=== PATIENT | female | born 1945 | race Asian ===

== ENCOUNTER 2017-09-22 14:12 | Emergency (ER) | payer OTHER, MEDICAID ==
--- NOTE | 2017-09-22 14:35 | CPEKG ---
Heart Rate: 57 RR Interval: 1053 P-R Interval: 180 QRSD Interval: 86 QT Interval: 444 QTC Interval: 433 P Foster: 14 QRS Foster: 72 T Wave Foster: 89 EKG Severity - NORMAL ECG - EKG Impression: SINUS RHYTHM Electronically Signed By: Paddy Lei 22-Sep-2017 15:41:49
--- NOTE | 2017-09-22 14:41 | EDPHY ---
H & P Smoking Status: Never smoked Time Seen by Provider: 09/22/17 14:40 HPI/ROS: Chief complaint. Syncope HPI. 72-year-old female presents emergency department after having a syncopal episode this morning. She got up to go to the bathroom about 5:00 a.m. And passed out without having any symptoms. She awakened 1 hr later on the bathroom floor and then was able to get up. She had no chest discomfort, shortness of breath, abdominal pain. No injuries. She had preceding right jaw pain that started yesterday. However again no chest discomfort. No injury to her jaw. It seems to be worse with chewing. No headache or vision change. She does feel shaky. She has never had passing out or similar episode before. ROS Constitutional. no fever/chills, no weakness Eyes. no problems with vision ENT. Right jaw pain Cardiovascular. no chest pain Respiratory. no shortness of breath, no cough Abdominal. no abdominal pain, no nausea/vomiting, no diarrhea . no problems urinating MS. no calf pain/swelling, no neck/back pain, no joint pain Skin. no rash Lymph. no swollen glands Neuro. Syncope (Paddy Lei) Past Medical/Surgical History: CVA, dyslipidemia, hypertension (Paddy Lei) Social History: , nonsmoker, no alcohol (Paddy Lei) Physical Exam: General Appearance: Alert well-developed female mild distress vital signs are stable Eyes: Pupils equal and round no pallor or injection. ENT, Mouth: Mucous membranes are moist. Respiratory: There are no retractions, lungs are clear to auscultation. Cardiovascular: Regular rate and rhythm. Gastrointestinal: Abdomen is soft and nontender, no masses, bowel sounds normal. Neurological: Awake and alert, sensory and motor exams grossly normal. Skin: Warm and dry, no rashes. Musculoskeletal: Neck is supple nontender. Extremities symmetrical, full range of motion. Psychiatric: Patient is oriented X 3, there is no agitation. (Paddy Lei) Constitutional: Initial Vital Signs Temperature (C) 36.7 C 09/22/17 14:26 Heart Rate 61 09/22/17 14:26 Respiratory Rate 16 09/22/17 14:26 Blood Pressure 118/75 09/22/17 14:26 O2 Sat (%) 90 L 09/22/17 14:26 O2 Delivery Mode Room Air Allergies/Adverse Reactions: No Known Allergies Allergy (Unverified 09/22/17 14:29) Home Medications: Medication Instructions Recorded Atorvastatin Calcium 09/22/17 Medical Decision Making - Diagnostics EKG Interpretation: EKG interpreted by me shows normal sinus rhythm with normal interval and axis. QRS is normal there is no significant ST elevation or depression. There is no arrhythmia. The rate is 57 (Paddy Lei) Imaging Results: Imaging Impressions Chest X-Ray 09/22/17 15:07 Impression: Difficult to exclude left lower lobe pneumonia or atelectasis. Consider a routine PA and lateral chest when the patient is clinically able. Head CT 09/22/17 15:07 Impression: 1. Old right cerebellar, right thalamic, and right basal ganglia infarcts. 2. No acute hemorrhage, hydrocephalus, or mass effect. 3. Cerebrovascular atherosclerosis. 4. No definite acute infarct. 5. Mild cerebral atrophy and mild microvascular ischemic gliosis. 6. Consider MRI of the brain, if there is continued clinical concern. Findings and recommendations discussed with Emergency Department physician, Dr. Thomas Mondragon, at 1605 hours, on September 22, 2017. Final report concurs with initial preliminary interpretation. Chest/Thorax CTA 09/22/17 15:38 Impression: 1. No definite pulmonary thromboemboli. 2. Coronary artery calcifications. 3. Moderate atherosclerotic aorta, without aneurysm or dissection. 4. No acute pneumonia, pleural effusion, pneumothorax, or significant adenopathy. Findings and recommendations discussed with at hours. A test result has been communicated to a licensed care provider and documented in the [employer] Critical Result system on 09/22/2017 16:23, Message ID [id number]. E:GI/amm Procedures: IV normal saline, monitor Patient speaks only Qatari. We used Qatari student services rep via telephone ( Paddy Lei) ED Course/Re-evaluation: Patient has an elevated D-dimer at 1.75. Indication for CT angiogram are syncope and elevated D-dimer (Paddy Lei) Differential Diagnosis: I have considered pneumonia and pulmonary embolus. Patient had a syncopal episode and elevated D-dimer. She has had a CVA in the past I considered intracranial bleeding as well as CVA though she has a normal neurologic exam at this point. I have considered cardiac arrhythmia and electrolyte abnormalities as well (Paddy Lei) Other Provider: 1600 care assumed by me from Dr. Lei pending CT scan of the head and chest. ECG is normal. Troponin is negative. Does have elevated D-dimer but a normal CT scan. Patient through her daughter interpreting tells me that the patient had a syncopal episode this morning after she stood up rapidly from urinating. She has been symptom free all day. Although this is concerning for syncope given her age the patient does not want to stay in the hospital. I have warned her that this could represent a possible arrhythmia that we would not have been able to identify here. Other possible causes could be aortic stenosis however I do not appreciate a traumatic murmur at this time. I do recommend she have this investigated further however she is states she does not want to stay in the hospital. No evidence of acute ischemia or any other bleeding. Patient will be therefore discharged with close follow up with primary care physician instructions return for any concerns. (Thomas Mondragon) Care Turn Over: Dr. Mondragon at 1600 (Paddy Lei) - Data Points Laboratory Results: Laboratory Results 09/22/17 14:37 09/22/17 14:37 09/22/17 09/22/17 09/22/17 14:37 14:37 14:37 WBC 10.12 10^3/uL H 10^3/uL (3.80-9.50) RBC 5.04 10^6/uL 10^6/uL (4.18-5.33) Hgb 16.0 g/dL g/dL (12.6-16.3) Hct 46.7 % % (38.0-47.0) MCV 92.7 fL fL (81.5-99.8) MCH 31.7 pg pg (27.9-34.1) MCHC 34.3 g/dL g/dL (32.4-36.7) RDW 13.3 % % (11.5-15.2) Plt Count 198 10^3/uL 10^3/uL (150-400) MPV 10.9 fL fL (8.7-11.7) Neut % (Auto) 75.9 % H % (39.3-74.2) Lymph % (Auto) 15.7 % % (15.0-45.0) Collier % (Auto) 6.9 % % (4.5-13.0) Eos % (Auto) 0.8 % % (0.6-7.6) Baso % (Auto) 0.3 % % (0.3-1.7) Nucleat RBC Rel Count 0.0 % % (0.0-0.2) Absolute Neuts (auto) 7.68 10^3/uL H 10^3/uL (1.70-6.50) Absolute Lymphs (auto) 1.59 10^3/uL 10^3/uL (1.00-3.00) Absolute Monos (auto) 0.70 10^3/uL 10^3/uL (0.30-0.80) Absolute Eos (auto) 0.08 10^3/uL 10^3/uL (0.03-0.40) Absolute Basos (auto) 0.03 10^3/uL 10^3/uL (0.02-0.10) Absolute Nucleated RBC 0.00 10^3/uL 10^3/uL (0-0.01) Immature Gran % 0.4 % % (0.0-1.1) Immature Gran # 0.04 10^3/uL 10^3/uL (0.00-0.10) ESR 11 MM/HR MM/HR (0-30) PT 13.8 SEC SEC (12.0-15.0) INR 1.07 (0.83-1.16) APTT 25.8 SEC SEC (23.0-38.0) D-Dimer 1.75 ug/mLFEU H ug/mLFEU (0.00-0.50) Sodium 143 mEq/L mEq/L (135-145) Potassium 4.6 mEq/L mEq/L (3.5-5.2) Chloride 102 mEq/L mEq/L (97-110) Carbon Dioxide 24 mEq/l mEq/l (22-31) Anion Gap 17 mEq/L H mEq/L (8-16) BUN 16 mg/dL mg/dL (7-23) Creatinine 1.1 mg/dL H mg/dL (0.6-1.0) Estimated GFR 49 Glucose 103 mg/dL H mg/dL (70-100) Calcium 9.7 mg/dL mg/dL (8.5-10.4) Troponin I < 0.012 ng/mL ng/mL (0.000-0.034) Medications Given: Discontinued Medications Sodium Chloride (Ns) 1,000 mls @ 0 mls/hr IV EDNOW ONE; Wide Open PRN Reason: Protocol Stop: 09/22/17 15:08 Last Admin: 09/22/17 15:33 Dose: 1,000 mls Departure - Departure Disposition: Home, Routine, Self-Care Clinical Impression: Syncope Qualifiers: Syncope type: unspecified Qualified Code(s): R55 - Syncope and collapse Condition: Fair Instructions: Syncope (ED) Additional Instructions: Return immediately for lightheadedness, further fainting, chest pain, shortness of breath, confusion, or any other concerns. Follow up with her primary care physician in 1-2 days for further evaluation. Referrals: Unknown,Unknown [Primary Care Provider] - As per Instructions
[2017-09-22] MEDS ORDERED: NS 1,000 ML IV ONE (15:07)
[2017-09-22 15:16] LABS: PLATELET COUNT 198 10^3/uL (150-400)
[2017-09-22 15:21] LABS: INR 1.07 (0.83-1.16); PROTIME(PATIENT) 13.8 SEC (12.0-15.0)
[2017-09-22] MEDS ORDERED: IOPAMIDOL (ISOVUE 370) 100 ML BTL IV ONE (15:42)
[2017-09-22 17:06] VITALS: RESP 20
[2017-09-22 17:19] VITALS: BP 132/83; PULSE 71; TEMP 97; O2SAT 95
== END 2017-09-22 17:12 | disposition home or self-care (01) ==
LOC: EDSTATUS 14:12 → CED 14:12
DX: R55 Syncope and collapse (principal); I10 Essential (primary) hypertension; E86.9 Volume depletion, unspecified; Z86.73 Personal history of transient ischemic attack (TIA), and cerebral infarction without residual deficits
CPT/HCPCS: 70450; 71045; 71275; 93005; 96360; 99285; Q9967; 80048-PO; 84484-PO; 85025-PO; 85378-PO; 85610-PO; 85652-PO; 85730-PO